=== PATIENT | male | born 1980 | race Caucasian/White ===

== ENCOUNTER 2017-04-02 23:56 | Emergency (ER) | payer BC ==
[2017-04-03 00:07] VITALS: BP 114/69; BMI 32.5
--- NOTE | 2017-04-03 00:59 | DR.GENAD ---
HPI - PCP Primary Care Physician: vanessa - HPI Comment HPI Comment: PATIENT NOT FEELING GOOD. HE IS A DIABETIC WHO IS NOT TAKING HIS MED FOR SEVERAL MONTHS. HE ADMITS POLYURIA AND POLYDYPSIA. HE ALSO WAS BP MED AND HE IS NOT TAKEN THAT MED FOR SEVERAL MONTHS ALSO. HE DENIES FEVER. - Complaint/Symptoms Chief Complaint Doctors Comments: WEAKNESS, CHILL AND MALAISE TIMES ONE DAY. Chief Complaint:: pt states" i just dont feel good i don't know what it is i have chills . it might be my blood pressure or my diabetes or my platelets i'm not sure i just don't feel god. i quit taking any of my medications last year sometime" - Nurses notes reviewed Nurses Notes Review: Yes - Source History Provided: Patient - Mode of Arrival Mode of Arrival: Ambulatory - Timing Onset of Chief Complaint: 04/02/17 Came on: Suddenly - Duration Duration: Constant Duration: Days - Severity Severity: Moderate PMH - PMH Past Medical History: Yes Past Medical History: Diabetes, Hypertension Past Surgical History: No Surgical History: Other - Family History History of Family Medical Conditions: Yes Family Medical History: Diabetes Mellitus - Social History Alcohol Use: None Do you use any recreational Drugs:: No Lives With: Family Lives Where: Home - infectious screening In the last 2 months have you had wt loss of >10#?: NO Have you had fever, night sweats or hemotysis?: No Have you traveled outside the country in the last 6 months?: No Isolation: Standard ROS - Review of Systems Constitutional: Chills, Malaise, Weakness, Fatigue. negative: Diaphoresis, Fever, Loss of Appetite Eyes: No Symptoms Reported. negative: Eye Pain, Discharge ENTM: No Symptoms Reported. negative: Ear Pain, Nose Discharge, Nose Congestion , Throat Pain Respiratoy: No Symptoms Reported. negative: Productive Cough, Non-Productive Cough, Short of Breath, Wheezing, Hemoptysis Cardiovascular: negative: Chest Pain, Edema, Palpitations Gastrointestinal/Abdominal: negative: Abdominal Pain, Diarrhea, Nausea, Vomiting Genitourinary: Other (POLYURIA). negative: Dysuria, Frequency, Hematuria Neurological: Weakness. negative: Headache, Dizziness Musculoskeletal: Muscle Pain Integumentary: No Symptoms Reported Hematologic/Lymphatic: Easy Bruising (HISTORY THOMBOCYTOPENIA) Endocrine: Increased Thirst, Increased Urine, Unexplained Weight Loss. negative : Flushing All Other Systems: Reviewed and Negative PE - Vital Signs Vitals: Temperature 97.8 F Pulse Rate 73 Respiratory Rate 20 Blood Pressure 114/69 O2 Sat by Pulse Oximetry 98 - General Limitations: No Limitations General Appearance: Alert - Head Head Exam: Normal Inspection - Eyes Eye exam: Normal Appearance - ENT ENT Exam: Normal External Ear Exam External Ear Exam: Normal External Inspection TM/Canal Exam: Bilateral Normal Nose Exam: Normal Nose Exam Mouth Exam: Normal Inspection Throat Exam: Normal Inspection - Neck Neck Exam: Trachea Midline - Chest Chest Inspection: Symmetric Chest Wall Rise - Respiratory Respiratory Exam: Normal Lung Sounds Bilat Respiratory Exam: Bilateral Clear to Auscultation - Cardiovascular Cardiovascular Exam: Regular Rate, Normal Rhythm, Normal Heart Sounds - Abdominal Exam Abdominal Exam: Normal Bowel Sounds, Soft. negative: Tenderness - Extremities Extremities Exam: Normal Inspection - Back Back Exam: Normal Inspection - Neurologic Neurological Exam: Alert, Oriented X3, CN II-XII Intact, Normal Gait, Reflexes Normal. negative: Motor Sensory Deficit - Psychiatric Psychiatric Exam: Normal Affect, Normal Mood - Skin Skin Exam: Normal Color [facility] - Additional Information Additional Information Obtained From: Family - Differential Diagnosis Differential Diagnosis: DKA, HYPERGLYCEMIA, HYPERTENSION, UTI Course - Treatment Treatment: SEE ORDERS - Education/Counseling Education/Counseling: Patient, Education Educated On: Treatment, Diagnosis, Needs for Follow Up ROR - Labs Reviewed Laboratory Results Reviewed?: Yes Result Diagrams: 04/03/17 00:53 04/03/17 00:53 Laboratory: WBC 7.2 X10^3/uL (3.6-10.0) 04/03/17 00:53 RBC 5.50 X10^6/uL (4.7-6.0) 04/03/17 00:53 Hgb 15.8 g/dL (13.5-18.0) 04/03/17 00:53 Hct 44.9 % (42.0-54.0) 04/03/17 00:53 MCV 81.7 fL (80.0-100.0) 04/03/17 00:53 MCH 28.7 pg (27.0-34.0) 04/03/17 00:53 MCHC 35.1 g/dL (33.0-35.0) H 04/03/17 00:53 RDW 14.0 % (11.6-16.5) 04/03/17 00:53 Plt Count 45 X10^3/uL (150.0-450.0) L 04/03/17 00:53 Plt Count Comment Decreased (ADEQUATE) 04/03/17 00:53 MPV 16.7 fL (7.4-11.0) H 04/03/17 00:53 Neut % 54.0 % (42.0-75.0) 04/03/17 00:53 Lymph % 35.3 % (21.0-51.0) 04/03/17 00:53 [place] % 7.2 % (0.0-13.0) 04/03/17 00:53 Eos % 2.3 % (0.9-2.9) 04/03/17 00:53 Baso % 1.2 % (0.2-1.0) H 04/03/17 00:53 Neut # 3.9 x10^3/uL (2.2-4.8) 04/03/17 00:53 Lymph # 2.5 X10^3/uL (1.3-2.9) 04/03/17 00:53 [place] # 0.5 x10^3/uL (0.3-0.8) 04/03/17 00:53 Eos # 0.2 x10^3/uL (0.0-0.2) 04/03/17 00:53 Baso # 0.1 X10^3/uL (0.0-0.1) 04/03/17 00:53 Absolute Nucleated RBC 0.0 /100WBC 04/03/17 00:53 Plt Clumps, EDTA Rare 04/03/17 00:53 Giant Platelets Few 04/03/17 00:53 Plt Morphology Comment Abnormal (NORMAL) 04/03/17 00:53 RBC Morphology Normal (NORMAL) 04/03/17 00:53 Sodium 137 mmol/L (136-145) 04/03/17 00:53 Corrected Sodium 140 mmol/L (136-145) 04/03/17 00:53 Potassium 3.7 mmol/L (3.5-5.1) 04/03/17 00:53 Chloride 103 mmol/L (98-107) 04/03/17 00:53 Carbon Dioxide 29.4 mmol/L (21-32) 04/03/17 00:53 BUN 16 mg/dL (7-18) 04/03/17 00:53 Creatinine 0.95 mg/dL (0.70-1.30) 04/03/17 00:53 Est GFR (MDRD) Af Amer > 60 (>60) 04/03/17 00:53 Est GFR (MDRD) Non-Af > 60 (>60) 04/03/17 00:53 Glucose 215 mg/dL (65-99) H 04/03/17 00:53 Calcium 9.2 mg/dL (8.5-10.1) 04/03/17 00:53 Corrected Calcium TNP 04/03/17 00:53 Total Bilirubin 0.50 mg/dL (0.2-1.0) 04/03/17 00:53 AST 16 Units/L (15-37) 04/03/17 00:53 ALT 37 Units/L (12-78) 04/03/17 00:53 Alkaline Phosphatase 52 Units/L (46-116) 04/03/17 00:53 Total Protein 7.0 g/dL (6.4-8.2) 04/03/17 00:53 Albumin 3.6 g/dL (3.4-5.0) 04/03/17 00:53 Globulin 3.4 g/dL (2.5-4.5) 04/03/17 00:53 Albumin/Globulin Ratio 1.1 Ratio (1.1-2.1) 04/03/17 00:53 Specimen Type Clean catch urine 04/03/17 01:03 Urine Color Yellow (YELLOW) 04/03/17 01:03 Urine Appearance Clear (CLEAR) 04/03/17 01:03 Urine pH 5.0 (5.0 - 8.0) 04/03/17 01:03 Ur Specific [place] 1.030 (1.000-1.030) 04/03/17 01:03 Urine Protein 1+ (NEGATIVE) 04/03/17 01:03 Urine Glucose (UA) 4+ (NEGATIVE) 04/03/17 01:03 Urine Ketones Negative (NEGATIVE) 04/03/17 01:03 Urine Occult Blood Negative (NEGATIVE) 04/03/17 01:03 Urine Nitrite Negative (NEGATIVE) 04/03/17 01:03 Urine Bilirubin Negative (NEGATIVE) 04/03/17 01:03 Urine Urobilinogen 1+ (NORMAL) 04/03/17 01:03 Ur Leukocyte Esterase Negative (NEGATIVE) 04/03/17 01:03 Urine RBC 0-3 /HPF (NEGATIVE) 04/03/17 01:03 Urine WBC 0-3 /HPF (NEGATIVE) 04/03/17 01:03 Ur Squamous Epith Cells Rare /HPF (NEGATIVE) 04/03/17 01:03 Urine Bacteria Negative /HPF (NEGATIVE) 04/03/17 01:03 Urine Mucus Few /HPF (NEGATIVE) 04/03/17 01:03 Ur Culture Indicated? No/not indicated 04/03/17 01:03 Acetone, Semi-Quant Negative (NEGATIVE) 04/03/17 00:53 - Diagnosis Discharge Problem: Hyperglycemia, Thrombocytopenia - Discharge Plan Disposition: 01 HOME, SELF-CARE Condition: Stable Prescriptions: Metformin HCl [GLUCOPHAGE 500 MG *] 500 mg PO BID #60 tab - Follow ups/Referrals Follow ups/Referrals: GEORGINA MADRID [Nurse Practitioner] - 04/03/17 NFD,Erin [Primary Care Provider] - 04/03/17 - Instructions Instructions: Hyperglycemia, Weakness, [id number] Additional Instructions: RETURN TO ED IF WORSE.
[2017-04-03] MEDS ORDERED: NS 1000 ML 1,000 ML IV ONE (01:11)
[2017-04-03 01:20] LABS: BASOPHILS # (AUTO) 0.1 X10^3/uL (0.0-0.1); EOSINOPHILS # (AUTO) 0.2 x10^3/uL (0.0-0.2)
[2017-04-03 01:24] LABS: HEMOGLOBIN 15.8 g/dL (13.5-18.0); MEAN CORPUSCULAR HEMOGLOBIN 28.7 pg (27.0-34.0)
[2017-04-03 01:25] LABS: BILIRUBIN,URINE NEGATIVE (NEGATIVE); BLOOD/HEMOGLOBIN,URINE NEGATIVE (NEGATIVE); GLUCOSE, URINE 4+ (NEGATIVE); KETONES,URINE NEGATIVE (NEGATIVE); LEUKOCYTE ESTERASE ,URINE NEGATIVE (NEGATIVE); NITRITES,URINE NEGATIVE (NEGATIVE); PROTEIN,URINE 1+ (NEGATIVE); UROBILINOGEN,URINE 1+ (NORMAL)
[2017-04-03 01:27] LABS: ALANINE AMINOTRANSFERASE 37 Units/L (12-78); ALBUMIN 3.6 g/dL (3.4-5.0); ALKALINE PHOSPHATASE 52 Units/L (46-116); ASPARTATE AMINO TRANSFERASE 16 Units/L (15-37); BLOOD UREA NITROGEN 16 mg/dL (7-18); CALCIUM 9.2 mg/dL (8.5-10.1); CARBON DIOXIDE 29.4 mmol/L (21-32); CHLORIDE 103 mmol/L (98-107); COR NA(FOR HYPERGLY) 140 mmol/L (136-145); CREATININE 0.95 mg/dL (0.70-1.30); GLUCOSE 215 mg/dL (65-99); SODIUM 137 mmol/L (136-145); eGFR BLACK RACES > 60 (>60); eGFR NON BLACK RACES > 60 (>60)
[2017-04-03 01:41] LABS: BASOPHILS % (AUTO) 1.2 % (0.2-1.0); EOSINOPHILS % (AUTO) 2.3 % (0.9-2.9); LYMPHOCYTES % (AUTO) 35.3 % (21.0-51.0); MONOCYTES # (AUTO) 0.5 x10^3/uL (0.3-0.8)
[2017-04-03 01:44] LABS: HEMATOCRIT 44.9 % (42.0-54.0); LYMPHOCYTES # (AUTO) 2.5 X10^3/uL (1.3-2.9); MEAN CORPUSCULAR HGB CONC 35.1 g/dL (33.0-35.0); MEAN CORPUSCULAR VOLUME 81.7 fL (80.0-100.0); MEAN PLATELET VOLUME 16.7 fL (7.4-11.0); MONOCYTES % (AUTO) 7.2 % (0.0-13.0); NEUTROPHILS # (AUTO) 3.9 x10^3/uL (2.2-4.8); PLATELET COUNT 45 X10^3/uL (150.0-450.0); WHITE BLOOD COUNT 7.2 X10^3/uL (3.6-10.0)
[2017-04-03 01:54] LABS: GIANT PLATELET FEW; PLATELET MORPHOLOGY COMMENT ABNORMAL (NORMAL)
[2017-04-03 01:56] LABS: APPEARANCE,URINE CLEAR (CLEAR); BACTERIA,URINE NEGATIVE /HPF (NEGATIVE); COLOR,URINE YELLOW (YELLOW); MUCUS,URINE FEW /HPF (NEGATIVE); RBC,URINE 0-3 /HPF (NEGATIVE); SQUAMOUS EPITHELIAL CELL,UR RARE /HPF (NEGATIVE)
== END 2017-04-03 02:54 | disposition home or self-care (01) ==
LOC: ER 23:56
DX: R73.9 Hyperglycemia, unspecified (principal); D69.6 Thrombocytopenia, unspecified
CPT/HCPCS: 36415; 80053; 81001; 82009; 85025; 99282; 99283

== ENCOUNTER 2017-05-29 13:34 | Emergency (ER) | payer BC ==
[2017-05-29 13:38] VITALS: BP 119/78; BMI 32.5
--- NOTE | 2017-05-29 14:19 | DR.GENAD ---
HPI - PCP Primary Care Physician: Dalton MADRID - HPI Comment HPI Comment: HISTORY BELOW. - Complaint/Symptoms Chief Complaint Doctors Comments: PAIN IN LT LOWER ABDOMEN AND GROIN TIMES ONE WEEK. PAIN WORSE TODAY. NO FEVER. NO N/V/D. Chief Complaint:: PATIENT STATED THAT HE HAS BEEN HURTING IN HIS GROIN FOR ALMOST A WEEK NOW. - Nurses notes reviewed Nurses Notes Review: Yes - Source History Provided: Patient - Mode of Arrival Mode of Arrival: Ambulatory - Timing Onset of Chief Complaint: 05/22/17 Came on: Suddenly - Duration Duration: Constant Duration: Days - Severity Severity: Moderate PMH - PMH Past Medical History: Yes Past Medical History: Diabetes, Hypertension Past Surgical History: No Surgical History: Other - Family History History of Family Medical Conditions: Yes Family Medical History: Diabetes Mellitus - Social History Does patient currently use any type of tobacco product: No Have you used tobacco products in the last 12 months: No Type of Tobacco Use: None Does any household member use tobacco: No Alcohol Use: None Do you use any recreational Drugs:: No Lives With: Family Lives Where: Home - infectious screening In the last 2 months have you had wt loss of >10#?: NO Have you had fever, night sweats or hemotysis?: No Have you traveled outside the country in the last 6 months?: No Isolation: Contact ROS - Review of Systems Constitutional: No Symptoms Reported Eyes: No Symptoms Reported ENTM: No Symptoms Reported Respiratoy: No Symptoms Reported Cardiovascular: No Symptoms Reported Gastrointestinal/Abdominal: Other (LT GROIN PAIN) Genitourinary: No Symptoms Reported. negative: Dysuria, Frequency, Hematuria Neurological: No Symptoms Reported Musculoskeletal: No Symptoms Reported Integumentary: No Symptoms Reported Hematologic/Lymphatic: No Symptoms Reported Endocrine: No Symptoms Reported All Other Systems: Reviewed and Negative PE - Vital Signs Vitals: Temperature 98.5 F Pulse Rate 83 Respiratory Rate 20 Blood Pressure 119/78 O2 Sat by Pulse Oximetry 99 - General Limitations: No Limitations General Appearance: Alert - Head Head Exam: Normal Inspection - Eyes Eye exam: Normal Appearance - ENT ENT Exam: Normal External Ear Exam External Ear Exam: Normal External Inspection TM/Canal Exam: Bilateral Normal Nose Exam: Normal Nose Exam Mouth Exam: Normal Inspection Throat Exam: Normal Inspection - Neck Neck Exam: Trachea Midline - Chest Chest Inspection: Symmetric Chest Wall Rise - Respiratory Respiratory Exam: Normal Lung Sounds Bilat Respiratory Exam: Bilateral Clear to Auscultation - Cardiovascular Cardiovascular Exam: Regular Rate, Normal Rhythm, Normal Heart Sounds - Abdominal Exam Abdominal Exam: Normal Bowel Sounds, Soft, Other (LT GROIN TENDERNESS). negative: Tenderness - Extremities Extremities Exam: Normal Inspection - Neurologic Neurological Exam: Alert, Oriented X3 - Psychiatric Psychiatric Exam: Normal Affect - Skin Skin Exam: Normal Color MDM - Differential Diagnosis Differential Diagnosis: INCERCERATED LIH, UTI, LLQ ABDOMINAL PAIMN, DIVERTICULITIS Course - Treatment Treatment: SEE ORDERS. - Education/Counseling Education/Counseling: Patient, Education Educated On: Diagnosis, Needs for Follow Up ROR - Labs Reviewed Laboratory Results Reviewed?: Yes Result Diagrams: 05/29/17 16:19 05/29/17 16:19 Laboratory: WBC 7.6 X10^3/uL (3.6-10.0) 05/29/17 16:19 RBC 5.76 X10^6/uL (4.7-6.0) 05/29/17 16:19 Hgb 16.6 g/dL (13.5-18.0) 05/29/17 16:19 Hct 47.2 % (42.0-54.0) 05/29/17 16:19 MCV 82.0 fL (80.0-100.0) 05/29/17 16:19 MCH 28.8 pg (27.0-34.0) 05/29/17 16:19 MCHC 35.1 g/dL (33.0-35.0) H 05/29/17 16:19 RDW 14.4 % (11.6-16.5) 05/29/17 16:19 Plt Count 56 X10^3/uL (150.0-450.0) L 05/29/17 16:19 Plt Count Comment Decreased (ADEQUATE) 05/29/17 16:19 MPV 16.3 fL (7.4-11.0) H 05/29/17 16:19 Neut % 58.7 % (42.0-75.0) 05/29/17 16:19 Lymph % 30.8 % (21.0-51.0) 05/29/17 16:19 [place] % 7.8 % (0.0-13.0) 05/29/17 16:19 Eos % 1.6 % (0.9-2.9) 05/29/17 16:19 Baso % 1.1 % (0.2-1.0) H 05/29/17 16:19 Neut # 4.4 x10^3/uL (2.2-4.8) 05/29/17 16:19 Lymph # 2.3 X10^3/uL (1.3-2.9) 05/29/17 16:19 [place] # 0.6 x10^3/uL (0.3-0.8) 05/29/17 16:19 Eos # 0.1 x10^3/uL (0.0-0.2) 05/29/17 16:19 Baso # 0.1 X10^3/uL (0.0-0.1) 05/29/17 16:19 Absolute Nucleated RBC 0.0 /100WBC 05/29/17 16:19 Giant Platelets Present 05/29/17 16:19 Plt Morphology Comment Abnormal (NORMAL) 05/29/17 16:19 RBC Morphology Normal (NORMAL) 05/29/17 16:19 Sodium 139 mmol/L (136-145) 05/29/17 16:19 Corrected Sodium 142 mmol/L (136-145) 05/29/17 16:19 Potassium 3.9 mmol/L (3.5-5.1) 05/29/17 16:19 Chloride 102 mmol/L (98-107) 05/29/17 16:19 Carbon Dioxide 29.6 mmol/L (21-32) 05/29/17 16:19 BUN 13 mg/dL (7-18) 05/29/17 16:19 Creatinine 1.04 mg/dL (0.70-1.30) 05/29/17 16:19 Est GFR (MDRD) Af Amer > 60 (>60) 05/29/17 16:19 Est GFR (MDRD) Non-Af > 60 (>60) 05/29/17 16:19 Glucose 229 mg/dL (65-99) H 05/29/17 16:19 Calcium 9.2 mg/dL (8.5-10.1) 05/29/17 16:19 Corrected Calcium TNP 05/29/17 16:19 Total Bilirubin 0.50 mg/dL (0.2-1.0) 05/29/17 16:19 AST 18 Units/L (15-37) 05/29/17 16:19 ALT 44 Units/L (12-78) 05/29/17 16:19 Alkaline Phosphatase 65 Units/L (46-116) 05/29/17 16:19 Total Protein 8.0 g/dL (6.4-8.2) 05/29/17 16:19 Albumin 4.2 g/dL (3.4-5.0) 05/29/17 16:19 Globulin 3.8 g/dL (2.5-4.5) 05/29/17 16:19 Albumin/Globulin Ratio 1.1 Ratio (1.1-2.1) 05/29/17 16:19 Specimen Type Clean catch urine 05/29/17 15:30 Urine Color Yellow (YELLOW) 05/29/17 15:30 Urine Appearance Clear (CLEAR) 05/29/17 15:30 Urine pH 5.0 (5.0 - 8.0) 05/29/17 15:30 Ur Specific [place] 1.015 (1.000-1.030) 05/29/17 15:30 Urine Protein Negative (NEGATIVE) 05/29/17 15:30 Urine Glucose (UA) 4+ (NEGATIVE) 05/29/17 15:30 Urine Ketones Negative (NEGATIVE) 05/29/17 15:30 Urine Occult Blood Negative (NEGATIVE) 05/29/17 15:30 Urine Nitrite Negative (NEGATIVE) 05/29/17 15:30 Urine Bilirubin Negative (NEGATIVE) 05/29/17 15:30 Urine Urobilinogen Normal (NORMAL) 05/29/17 15:30 Ur Leukocyte Esterase Negative (NEGATIVE) 05/29/17 15:30 Urine RBC 0-1 /HPF (NEGATIVE) 05/29/17 15:30 Urine WBC None seen /HPF (NEGATIVE) 05/29/17 15:30 Ur Squamous Epith Cells Negative /HPF (NEGATIVE) 05/29/17 15:30 Amorphous Sediment Trace /HPF (NEGATIVE) 05/29/17 15:30 Urine Bacteria Negative /HPF (NEGATIVE) 05/29/17 15:30 Ur Culture Indicated? No/not indicated 05/29/17 15:30 - XRAY XRAY Interpreted by: Radiologist XRAY Findings: REPORT DISCUSS WITH PATIENT. - Diagnosis Discharge Problem: Lt groin pain, LLQ abdominal pain - Discharge Plan Disposition: 01 HOME, SELF-CARE Condition: Stable Prescriptions: Cyclobenzaprine HCl [FLEXERIL 10 MG *] 10 mg PO TID #20 tab Ibuprofen [MOTRIN TAB 600 MG *] 600 mg PO TID PRN #20 tab PRN Reason: Pain/Inflammation - Follow ups/Referrals Follow ups/Referrals: GEORGINA MADRID [Primary Care Provider] - 3 days - Instructions Instructions: Groin Strain Additional Instructions: RETURN TO ED IF WORSE.
[2017-05-29 15:59] LABS: BILIRUBIN,URINE NEGATIVE (NEGATIVE); BLOOD/HEMOGLOBIN,URINE NEGATIVE (NEGATIVE); GLUCOSE, URINE 4+ (NEGATIVE); KETONES,URINE NEGATIVE (NEGATIVE); LEUKOCYTE ESTERASE ,URINE NEGATIVE (NEGATIVE); NITRITES,URINE NEGATIVE (NEGATIVE); PROTEIN,URINE NEGATIVE (NEGATIVE); UROBILINOGEN,URINE NORMAL (NORMAL)
[2017-05-29 16:18] LABS: AMORPHOUS SEDIMENT,UR TRACE /HPF (NEGATIVE); APPEARANCE,URINE CLEAR (CLEAR); BACTERIA,URINE NEGATIVE /HPF (NEGATIVE); COLOR,URINE YELLOW (YELLOW); RBC,URINE 0-1 /HPF (NEGATIVE); SQUAMOUS EPITHELIAL CELL,UR NEGATIVE /HPF (NEGATIVE)
[2017-05-29 16:33] LABS: BASOPHILS # (AUTO) 0.1 X10^3/uL (0.0-0.1); BASOPHILS % (AUTO) 1.1 % (0.2-1.0); EOSINOPHILS # (AUTO) 0.1 x10^3/uL (0.0-0.2); EOSINOPHILS % (AUTO) 1.6 % (0.9-2.9); HEMATOCRIT 47.2 % (42.0-54.0); HEMOGLOBIN 16.6 g/dL (13.5-18.0); LYMPHOCYTES # (AUTO) 2.3 X10^3/uL (1.3-2.9); LYMPHOCYTES % (AUTO) 30.8 % (21.0-51.0); MEAN CORPUSCULAR HEMOGLOBIN 28.8 pg (27.0-34.0); MEAN CORPUSCULAR HGB CONC 35.1 g/dL (33.0-35.0); MEAN PLATELET VOLUME 16.3 fL (7.4-11.0); MONOCYTES # (AUTO) 0.6 x10^3/uL (0.3-0.8); MONOCYTES % (AUTO) 7.8 % (0.0-13.0); NEUTROPHILS # (AUTO) 4.4 x10^3/uL (2.2-4.8); NEUTROPHILS % (AUTO) 58.7 % (42.0-75.0); PLATELET COUNT 56 X10^3/uL (150.0-450.0); RED BLOOD COUNT 5.76 X10^6/uL (4.7-6.0); RED CELL DISTRIBUTION WIDTH 14.4 % (11.6-16.5); WHITE BLOOD COUNT 7.6 X10^3/uL (3.6-10.0)
[2017-05-29 16:40] LABS: ALANINE AMINOTRANSFERASE 44 Units/L (12-78); ALBUMIN 4.2 g/dL (3.4-5.0); ALKALINE PHOSPHATASE 65 Units/L (46-116); ASPARTATE AMINO TRANSFERASE 18 Units/L (15-37); BLOOD UREA NITROGEN 13 mg/dL (7-18); CALCIUM 9.2 mg/dL (8.5-10.1); CARBON DIOXIDE 29.6 mmol/L (21-32); CHLORIDE 102 mmol/L (98-107); COR NA(FOR HYPERGLY) 142 mmol/L (136-145); CREATININE 1.04 mg/dL (0.70-1.30); GLUCOSE 229 mg/dL (65-99); SODIUM 139 mmol/L (136-145); eGFR BLACK RACES > 60 (>60); eGFR NON BLACK RACES > 60 (>60)
--- NOTE | 2017-05-29 16:46 | CT ---
HISTORY: Left lower quadrant abdominal pain for 1 week Study: CT abdomen and pelvis without contrast Comparison: None Technique: Multiple axial images of the abdomen and pelvis were obtained from the lung bases to the pubic symph ysis without the administration of IV contrast. Sagittal and coronal reformations were provided. Findings: There is subsegmental patchy ground-glass opacities anteriorly in the right upper lobe and in the li ngula and in the left lower lobe . There is no pleural effusion. The liver, spleen, pancreas, kidn eys, and adrenal glands are unremarkable in their CT appearance. The gallbladder is unremarkable in its CT appearance. No significant mesenteric lymphadenopathy or stranding can be observed. No free fluid or free air is seen within the abdomen. The appendix is normal. No bowel wall thickening or bowel dilatation is present. There is mild diverticular disease in the proximal sigmoid colon. No i nflammatory changes are demonstrated. No inguinal mass or adenopathy or aneurysm is demonstrated. Th ere is prominent fat in the left inguinal canal without stranding of fat planes.. The urinary bladde r is grossly unremarkable. The bony structures are grossly intact. IMPRESSION: 1. Negative CT of the abdomen and pelvis. Reported By:
[2017-05-29 17:00] LABS: GIANT PLATELET PRESENT; PLATELET MORPHOLOGY COMMENT ABNORMAL (NORMAL)
== END 2017-05-29 17:05 | disposition home or self-care (01) ==
LOC: ER 13:51
DX: R10.32 Left lower quadrant pain (principal)
CPT/HCPCS: 36415; 74176; 80053; 81001; 85025; 99282; 99283

== ENCOUNTER → 2017-05-30 | Outpatient (CLI) | payer BC ==
[2017-05-29 13:38] VITALS: BP 119/78
--- NOTE | 2017-05-31 07:39 | VAS ---
HISTORY: Left lower extremity pain, left groin pain Study: Left lower extremity venous Doppler Comparison: None TECHNIQUE: Multiple de paz scale and color flow Doppler images of the deep venous system were obtaine d of the left lower extremity. FINDINGS: The deep venous system of the left lower extremity was evaluated from the level of the common femora l vein through the popliteal vein. Normal color flow and augmentation can be observed. In addition , normal compression is seen throughout the deep venous system. IMPRESSION: 1. Negative for DVT. Reported By:
== END ==
LOC: RAD 16:56
PROVIDERS: ATTEND Internal Medicine
DX: M79.605 Pain in left leg (principal)
CPT/HCPCS: 93971

== ENCOUNTER 2017-07-16 11:46 | Inpatient (IN) | payer BC ==
[2017-07-16] MEDS ORDERED: PHARMACY CONSULT - DOSE _____ XX SCH (13:22)
[2017-07-16 13:53] LABS: BASOPHILS # (AUTO) 0.2 X10^3/uL (0.0-0.1); EOSINOPHILS # (AUTO) 0.1 x10^3/uL (0.0-0.2); EOSINOPHILS % (AUTO) 1.6 % (0.9-2.9); HEMATOCRIT 42.4 % (42.0-54.0); LYMPHOCYTES # (AUTO) 1.6 X10^3/uL (1.3-2.9); LYMPHOCYTES % (AUTO) 20.4 % (21.0-51.0); MEAN CORPUSCULAR HGB CONC 35.3 g/dL (33.0-35.0); MEAN CORPUSCULAR VOLUME 82.2 fL (80.0-100.0); MEAN PLATELET VOLUME 16.5 fL (7.4-11.0); MONOCYTES # (AUTO) 0.6 x10^3/uL (0.3-0.8); MONOCYTES % (AUTO) 7.2 % (0.0-13.0); NEUTROPHILS # (AUTO) 5.5 x10^3/uL (2.2-4.8); NEUTROPHILS % (AUTO) 68.8 % (42.0-75.0); PLATELET COUNT 48 X10^3/uL (150.0-450.0); RED BLOOD COUNT 5.16 X10^6/uL (4.7-6.0); RED CELL DISTRIBUTION WIDTH 14.2 % (11.6-16.5)
[2017-07-16 13:57] VITALS: BMI 31.2
[2017-07-16] MEDS: ZOSYN VIAL 3.375 GM 3.375 GM in NS 100 ML IV + SPIKE MINIBAG* 100 ML IV SCH ×2 (13:59→19:54)
[2017-07-16] MEDS: NS 1000 ML 1,000 ML IV SCH (14:00)
[2017-07-16 14:08] LABS: ALANINE AMINOTRANSFERASE 36 Units/L (12-78); ALBUMIN 3.6 g/dL (3.4-5.0); ALKALINE PHOSPHATASE 69 Units/L (46-116); ASPARTATE AMINO TRANSFERASE 15 Units/L (15-37); BLOOD UREA NITROGEN 10 mg/dL (7-18); CALCIUM 8.8 mg/dL (8.5-10.1); CARBON DIOXIDE 25.6 mmol/L (21-32); CHLORIDE 101 mmol/L (98-107); COR NA(FOR HYPERGLY) 140 mmol/L (136-145); CREATININE 1.04 mg/dL (0.70-1.30); SODIUM 136 mmol/L (136-145); TOTAL PROTEIN 7.2 g/dL (6.4-8.2); eGFR BLACK RACES > 60 (>60); eGFR NON BLACK RACES > 60 (>60)
[2017-07-16 14:10] LABS: GIANT PLATELET NOTED
[2017-07-16 14:11] LABS: PLATELET MORPHOLOGY COMMENT ABNORMAL (NORMAL)
[2017-07-16] MEDS ORDERED: MOTRIN TAB 600 MG PO PRN (16:13)
--- NOTE | 2017-07-16 16:14 | RAD ---
History: Patient stepped on a resting nail, with cellulitis. Technique: Three views of the right foot. Comparison:NONE Findings: There is soft tissue swelling suggests along the plantar aspect of the midfoot. No acute fracture or dislocation is demonstrated. No radiopaque foreign bodies are seen. Impression: 1. Soft tissue swelling with no acute osseous abnormalities. Reported By:
[2017-07-16] MEDS ORDERED: GLUCOPHAGE ONE (19:46)
--- NOTE | 2017-07-16 20:26 | DR.UPDATE ---
H&P Update History and Physical Update: PATIENT WAS SEEN IN THE OFFICE TODAY. A H&P WAS COMPLETED PRIOR TO DISCHARGE. PATIENT HAS BEEN SEEN AND EXAMINED WITH NO CHANGES NOTED. Changes noted: NO Yes with the following:
[2017-07-16] MEDS: GLUCOPHAGE PO SCH (20:48)
[2017-07-16] MEDS ORDERED: GENTAMICIN TOPICAL OINT TOP SCH (21:00)
[2017-07-16] MEDS ORDERED: PATIENT'S HOME MEDICATION SC SCH (21:00)
[2017-07-16] MEDS ORDERED: [UNRECOGNIZED DRUG - OTHER] INJ SCH (21:00)
[2017-07-16] MEDS: PATIENT'S HOME MEDICATION SC SCH (23:09)
[2017-07-16] MEDS: RESTORIL CAP 15 MG PO PRN (23:10)
[2017-07-17] MEDS: FORTAZ or TAZICEF INJ 2 GM in NS 50 ML IV + SPIKE MINIBAG* 50 ML IV SCH ×4 (00:10→21:43)
[2017-07-17 05:38] LABS: ALANINE AMINOTRANSFERASE 36 Units/L (12-78); ALKALINE PHOSPHATASE 61 Units/L (46-116); ASPARTATE AMINO TRANSFERASE 16 Units/L (15-37); BLOOD UREA NITROGEN 11 mg/dL (7-18); CALCIUM 8.3 mg/dL (8.5-10.1); CARBON DIOXIDE 24.1 mmol/L (21-32); CHLORIDE 107 mmol/L (98-107); COR CA(FOR HYPOALB) 9.1 mg/dL (8.5-10.1); COR NA(FOR HYPERGLY) 142 mmol/L (136-145); CREATININE 0.78 mg/dL (0.70-1.30); SODIUM 140 mmol/L (136-145); TOTAL PROTEIN 6.5 g/dL (6.4-8.2); eGFR BLACK RACES > 60 (>60); eGFR NON BLACK RACES > 60 (>60)
[2017-07-17 06:17] LABS: BASOPHILS # (AUTO) 0.1 X10^3/uL (0.0-0.1); BASOPHILS % (AUTO) 0.9 % (0.2-1.0); EOSINOPHILS # (AUTO) 0.1 x10^3/uL (0.0-0.2); EOSINOPHILS % (AUTO) 2.2 % (0.9-2.9); HEMATOCRIT 40.9 % (42.0-54.0); HEMOGLOBIN 14.4 g/dL (13.5-18.0); LYMPHOCYTES # (AUTO) 2.1 X10^3/uL (1.3-2.9); LYMPHOCYTES % (AUTO) 30.6 % (21.0-51.0); MEAN CORPUSCULAR HEMOGLOBIN 28.7 pg (27.0-34.0); MEAN CORPUSCULAR HGB CONC 35.2 g/dL (33.0-35.0); MEAN CORPUSCULAR VOLUME 81.8 fL (80.0-100.0); MONOCYTES # (AUTO) 0.6 x10^3/uL (0.3-0.8); MONOCYTES % (AUTO) 8.9 % (0.0-13.0); NEUTROPHILS # (AUTO) 3.9 x10^3/uL (2.2-4.8); NEUTROPHILS % (AUTO) 57.4 % (42.0-75.0); RED CELL DISTRIBUTION WIDTH 14.5 % (11.6-16.5); WHITE BLOOD COUNT 6.7 X10^3/uL (3.6-10.0)
[2017-07-17 07:09] LABS: GIANT PLATELET PRESENT; PLATELET MORPHOLOGY COMMENT ABNORMAL (NORMAL)
[2017-07-17 07:12] LABS: PLATELET COUNT 34 X10^3/uL (150.0-450.0)
[2017-07-17] MEDS ORDERED: GLUCOPHAGE ONE ×2 (08:38→21:05)
[2017-07-17] MEDS: PROTONIX TAB 40 MG PO SCH (08:43)
[2017-07-17] MEDS: GLUCOPHAGE PO SCH ×2 (08:43→21:43)
[2017-07-17] MEDS: ZANTAC PO SCH (08:43)
[2017-07-17] MEDS: NS 1000 ML 1,000 ML IV SCH ×2 (10:01→15:24)
[2017-07-17] MEDS: TORADOL 30 MG VIAL IVP PRN ×2 (10:01→21:48)
[2017-07-17] MEDS: SNACK - Diabetic Appropriate PO SCH ×2 (10:46→21:45)
[2017-07-17] MEDS: VANCOMYCIN 1 GM PREMIX (ADDVANTAGE) 250 ML IV SCH ×2 (11:09→21:44)
[2017-07-17] MEDS: HumuLIN R SC PRN (17:12)
--- NOTE | 2017-07-17 21:41 | PCM.PROG ---
Progress Note - Progress Note for Day of Date: 07/17/17 - Subjective Subjective: WAS ADMITTED FOR CELLULITIS TO THE RIGHT FOOT. PATIENT REPORTS THAT HE STEPPED ON A NAIL ABOUT A WEEK AGO. HE IS ALERT AND ORIENTED, LYING IN BED ON MORNING ROUNDS. PATIENT'S SPOUSE IS AT BEDSIDE. TODAY, HE IS NOTED WITH COMPLAINTS OF RIGHT FOOT PAIN. HE DESCRIBES IT THROBING AND PAIN 6 /10. AREA OF REDNESS WAS MARKED ON ADMISSION, REDNESS APPEARS TO HAVE SPREAD OUTSIDE OF MARKINGS. LUNGS ARE NOTED CLEAR TO AUSCULTATION. ABDOMEN IS ROUND, SOFT, AND NON-TENDER WITH NORMAL BOWEL SOUNDS NOTED IN ALL QUADRANTS. PATIENT REPORTS THAT HE IS UP TO DATE ON TETANUS SHOT. HIS VITAL SIGNS THIS MORNING ARE 97.6-80-20-97%-110/66. A CBC AND CMP WERE OBTAINED. ABNORMAL LAB VALUES INCLUDE THE FOLLOWING: HCT 40.9, PLT COUNT 34, GLUCOSE 178, CALCIUM 8.3, ALBUMIN 3.0. A FOOT XRAY WAS OBTAINED ON ADMISSION. IT REPORTED SOFT TISSUE SWELLING WITH NO ACUTE OSSEOUS ABNORMALITIES. WE WILL ORDER A MRI OF THE RIGHT FOOT TODAY TO ASSESS FOR INVOLVEMENT OF THE BONE. WE WILL ALSO ORDER TORADOL 30MG IV Q4H PRN PAIN AND VANCOMYCIN 1GM IV Q12H. OTHERWISE, WE WILL CONTINUE WITH CURRENT PLAN OF CARE. WE WILL FOLLOW UP WITH AM LABS AND CONTINUE TO MONITOR PATIENT. - Past Medical Family Social History Past Med/Fam/Surg Hx: No changes since H&P Allergies: Allergies aspirin Allergy (Verified 07/16/17 21:32) codeine Allergy (Verified 07/16/17 21:32) Penicillins Allergy (Verified 07/16/17 21:32) - Review of Systems ROS: No change since H&P - Vital Signs and I&O's Vital Signs: Temperature 99.3 F Pulse Rate [Right Brachial] 67 Respiratory Rate 22 Blood Pressure [Right Arm] 121/63 Blood Pressure [Left Arm] 121/70 Blood Pressure 119/78 O2 Sat by Pulse Oximetry 97 Intake and Output: Intake & Output 07/15/17 07/16/17 07/17/17 07/18/17 11:59 11:59 11:59 11:59 Intake Total 440 900 Balance 440 900 - Physical Exam Oriented: Normal Eyes: Normal Ear: Normal Nose: Normal Throat: Normal Respiratory: Normal Cardiovascular: Normal : Normal Auscultation: Bowel Sounds: Normal Palpation: Normal Tenderness: Normal Skin: Normal Musculoskeletal: Right, Foot, Swelling, Tender Psychiatric: Normal Mood Description: Calm Affect: Normal Speech Pattern: Clear, Appropriate - Laboratory and Diagnostics Result Diagrams: 07/17/17 04:45 07/17/17 04:45 Labs: Laboratory WBC 6.7 X10^3/uL (3.6-10.0) 07/17/17 04:45 RBC 5.00 X10^6/uL (4.7-6.0) 07/17/17 04:45 Hgb 14.4 g/dL (13.5-18.0) 07/17/17 04:45 Hct 40.9 % (42.0-54.0) L 07/17/17 04:45 MCV 81.8 fL (80.0-100.0) 07/17/17 04:45 MCH 28.7 pg (27.0-34.0) 07/17/17 04:45 MCHC 35.2 g/dL (33.0-35.0) H 07/17/17 04:45 RDW 14.5 % (11.6-16.5) 07/17/17 04:45 Plt Count 34 X10^3/uL (150.0-450.0) L 07/17/17 04:45 Plt Count Comment Decreased (ADEQUATE) 07/17/17 04:45 MPV 11.0 fL (7.4-11.0) 07/17/17 04:45 Neut % 57.4 % (42.0-75.0) 07/17/17 04:45 Lymph % 30.6 % (21.0-51.0) 07/17/17 04:45 [place] % 8.9 % (0.0-13.0) 07/17/17 04:45 Eos % 2.2 % (0.9-2.9) 07/17/17 04:45 Baso % 0.9 % (0.2-1.0) 07/17/17 04:45 Neut # 3.9 x10^3/uL (2.2-4.8) 07/17/17 04:45 Lymph # 2.1 X10^3/uL (1.3-2.9) 07/17/17 04:45 [place] # 0.6 x10^3/uL (0.3-0.8) 07/17/17 04:45 Eos # 0.1 x10^3/uL (0.0-0.2) 07/17/17 04:45 Baso # 0.1 X10^3/uL (0.0-0.1) 07/17/17 04:45 Absolute Nucleated RBC 0.1 /100WBC 07/17/17 04:45 Giant Platelets Present 07/17/17 04:45 Plt Morphology Comment Abnormal (NORMAL) 07/17/17 04:45 RBC Morphology Normal (NORMAL) 07/17/17 04:45 Sodium 140 mmol/L (136-145) 07/17/17 04:45 Corrected Sodium 142 mmol/L (136-145) 07/17/17 04:45 Potassium 4.0 mmol/L (3.5-5.1) 07/17/17 04:45 Chloride 107 mmol/L (98-107) 07/17/17 04:45 Carbon Dioxide 24.1 mmol/L (21-32) 07/17/17 04:45 BUN 11 mg/dL (7-18) 07/17/17 04:45 Creatinine 0.78 mg/dL (0.70-1.30) 07/17/17 04:45 Est GFR (MDRD) Af Amer > 60 (>60) 07/17/17 04:45 Est GFR (MDRD) Non-Af > 60 (>60) 07/17/17 04:45 Glucose 178 mg/dL (65-99) H 07/17/17 04:45 POC Glucose (mg/dL) 249 mg/dL (65-99) H 07/17/17 16:44 Calcium 8.3 mg/dL (8.5-10.1) L 07/17/17 04:45 Corrected Calcium 9.1 mg/dL (8.5-10.1) 07/17/17 04:45 Total Bilirubin 0.30 mg/dL (0.2-1.0) 07/17/17 04:45 AST 16 Units/L (15-37) 07/17/17 04:45 ALT 36 Units/L (12-78) 07/17/17 04:45 Alkaline Phosphatase 61 Units/L (46-116) 07/17/17 04:45 Total Protein 6.5 g/dL (6.4-8.2) 07/17/17 04:45 Albumin 3.0 g/dL (3.4-5.0) L 07/17/17 04:45 Globulin 3.5 g/dL (2.5-4.5) 07/17/17 04:45 Albumin/Globulin Ratio 0.9 Ratio (1.1-2.1) L 07/17/17 04:45 - Plan (1) Cellulitis of right foot Status: Acute Plan: FORTAZ 2GM IV Q8H, VANCOMYCIN 1GM IV Q12H, TORADOL 30MG IV Q4H PRN PAIN, MRI OF THE RIGHT FOOT, CONTINUE TO MONITOR
[2017-07-17] MEDS: RESTORIL CAP 15 MG PO PRN (21:43)
[2017-07-17] MEDS: PATIENT'S HOME MEDICATION SC SCH (21:46)
[2017-07-17] MEDS ORDERED: BENADRYL CAP/TAB 25 MG PO ONE (23:03)
[2017-07-18] MEDS: NS 1000 ML 1,000 ML IV SCH ×2 (04:28→04:37)
[2017-07-18 06:07] LABS: BASOPHILS % (AUTO) 0.9 % (0.2-1.0); EOSINOPHILS # (AUTO) 0.2 x10^3/uL (0.0-0.2); EOSINOPHILS % (AUTO) 2.8 % (0.9-2.9); HEMATOCRIT 39.5 % (42.0-54.0); HEMOGLOBIN 13.9 g/dL (13.5-18.0); LYMPHOCYTES # (AUTO) 1.9 X10^3/uL (1.3-2.9); LYMPHOCYTES % (AUTO) 32.8 % (21.0-51.0); MEAN CORPUSCULAR HEMOGLOBIN 28.7 pg (27.0-34.0); MEAN CORPUSCULAR HGB CONC 35.1 g/dL (33.0-35.0); MEAN CORPUSCULAR VOLUME 81.9 fL (80.0-100.0); MEAN PLATELET VOLUME 17.3 fL (7.4-11.0); MONOCYTES # (AUTO) 0.5 x10^3/uL (0.3-0.8); MONOCYTES % (AUTO) 7.9 % (0.0-13.0); NEUTROPHILS # (AUTO) 3.2 x10^3/uL (2.2-4.8); NEUTROPHILS % (AUTO) 55.6 % (42.0-75.0); PLATELET COUNT 42 X10^3/uL (150.0-450.0); RED BLOOD COUNT 4.82 X10^6/uL (4.7-6.0); RED CELL DISTRIBUTION WIDTH 14.5 % (11.6-16.5); WHITE BLOOD COUNT 5.7 X10^3/uL (3.6-10.0)
[2017-07-18] MEDS: FORTAZ or TAZICEF INJ 2 GM in NS 50 ML IV + SPIKE MINIBAG* 50 ML IV SCH (06:07)
[2017-07-18] MEDS: HumuLIN R SC PRN (06:15)
[2017-07-18 06:23] LABS: ALANINE AMINOTRANSFERASE 37 Units/L (12-78); ALBUMIN 2.9 g/dL (3.4-5.0); ALKALINE PHOSPHATASE 57 Units/L (46-116); ASPARTATE AMINO TRANSFERASE 16 Units/L (15-37); BLOOD UREA NITROGEN 11 mg/dL (7-18); CALCIUM 8.5 mg/dL (8.5-10.1); CARBON DIOXIDE 23.9 mmol/L (21-32); CHLORIDE 106 mmol/L (98-107); COR CA(FOR HYPOALB) 9.4 mg/dL (8.5-10.1); COR NA(FOR HYPERGLY) 142 mmol/L (136-145); CREATININE 0.75 mg/dL (0.70-1.30); SODIUM 140 mmol/L (136-145); TOTAL PROTEIN 6.3 g/dL (6.4-8.2); eGFR BLACK RACES > 60 (>60); eGFR NON BLACK RACES > 60 (>60)
[2017-07-18 06:47] LABS: GIANT PLATELET PRESENT; PLATELET MORPHOLOGY COMMENT ABNORMAL (NORMAL)
[2017-07-18] MEDS ORDERED: GLUCOPHAGE ONE (07:35)
[2017-07-18] MEDS: VANCOMYCIN 1 GM PREMIX (ADDVANTAGE) 250 ML IV SCH (08:49)
[2017-07-18] MEDS: ZANTAC PO SCH (08:49)
[2017-07-18] MEDS: GLUCOPHAGE PO SCH (08:50)
[2017-07-18] MEDS: PROTONIX TAB 40 MG PO SCH (08:50)
--- NOTE | 2017-07-18 09:37 | MRI ---
MRI right foot without contrast Indication: Foot swelling and erythema after stepping on a nail Comparison: Radiographs 07/16/2017 Technique: Multiplanar multisequence MR images of the right foot were obtained without contrast. Findings: There is subcutaneous edema along the plantar aspect of the distal 1st and 2nd metatarsals, without discrete collection. There is also diffuse subcutaneous edema along the dorsal and medial mi d to forefoot. No susceptibility artifact identified to suggest soft tissue gas or foreign body. There is mild symmetric joint space loss of the great toe MTP joint with small marginal osteophytes a nd small simple appearing joint effusion. No osteolysis or focal disruption of the articular surfaces appreciated. The bony alignment and marrow signal are otherwise unremarkable. The major tendons and intrinsic muscles are intact. The plantar fascia is within normal limits. Impression: 1. Nonspecific subcutaneous edema of the dorsal and distal plantar foot, suggestive for cellulitis. No abscess identified. No evidence for osteomyelitis. 2. Mild degenerative changes of the great toe MTP joint with small joint effusion. Reported By:
[2017-07-18 12:05] VITALS: BP 135/66
== END 2017-07-18 10:35 | disposition home or self-care (01) | DRG 603 ==
LOC: MED/SURG 11:46 → UNDOADMIN 11:46 → MED/SURG 12:50
PROVIDERS: ADMIT Internal Medicine; ATTEND Internal Medicine
DX: L03.115 Cellulitis of right lower limb (principal); E11.65 Type 2 diabetes mellitus with hyperglycemia; R50.9 Fever, unspecified; R60.0 Localized edema; K21.9 Gastro-esophageal reflux disease without esophagitis
CPT/HCPCS: 36415; 73630; 73721; 80053; 85025; 87040; A4222; J0713; J1815; J1885; J2543; J3370